=== PATIENT | male | born 1985 | race Caucasian/White ===

== ENCOUNTER 2017-06-22 11:47 | Emergency (ER) | payer OTHER | END 2017-06-22 14:30 | disposition home or self-care (01) | LOC: E/R 11:47 | DX: R05 Cough (principal); R50.9 Fever, unspecified; I10 Essential (primary) hypertension | CPT/HCPCS: 99284; Z7502 ==

== ENCOUNTER 2017-07-08 07:15 | Emergency (ER) | payer OTHER ==
[2017-07-08 08:49] LABS: URINE BLOOD (Dip) POC Negative (NEGATIVE); URINE GLUCOSE (Dip) POC Negative (NEGATIVE); URINE KETONES (Dip) POC Negative (NEGATIVE); URINE LEUKOCYTE EST (Dip) POC Negative (NEGATIVE); URINE NITRITE (Dip) POC Negative (NEGATIVE); URINE TOTAL PROTEIN POC Negative (NEGATIVE)
== END 2017-07-08 09:00 | disposition home or self-care (01) ==
LOC: FTE 07:15
DX: N48.89 Other specified disorders of penis (principal); I10 Essential (primary) hypertension
CPT/HCPCS: 81003; 99283

== ENCOUNTER 2018-04-21 06:23 | Emergency (ER) | payer OTHER ==
[2018-04-21 07:10] LABS: URINE BLOOD (Dip) POC Negative (NEGATIVE); URINE GLUCOSE (Dip) POC Negative (NEGATIVE); URINE KETONES (Dip) POC Negative (NEGATIVE); URINE LEUKOCYTE EST (Dip) POC Negative (NEGATIVE); URINE NITRITE (Dip) POC Negative (NEGATIVE); URINE TOTAL PROTEIN POC Negative (NEGATIVE)
== END 2018-04-21 07:19 | disposition home or self-care (01) ==
LOC: FTE 06:23
DX: N50.89 Other specified disorders of the male genital organs (principal); I10 Essential (primary) hypertension
CPT/HCPCS: 81003; 99282